=== PATIENT | female | born 1995 | race Hispanic/Latino ===

== ENCOUNTER 2017-07-08 10:04 | Emergency (ER) | payer SELFPAY ==
[2017-07-08 10:43] LABS: #Basophils 0.1 thou/uL (0.0-0.2); #Eosinphils 0.1 thou/uL (0.0-0.7); #Lymphocytes 1.6 thou/uL (1.20-3.40); #Monocytes 0.5 thou/uL (0.11-0.59); #Neutrophils 2.8 thou/uL (1.40-6.50); %Basophils 1.3 % (0.0-1.0); %Eosinophils 2.5 % (0.0-10.0); %Lymphocytes 32.3 % (28.0-48.0); %Monocytes 8.9 % (0.0-4.0); %Neutrophils 55.1 % (31.0-61.0); Hemoglobin 15.7 g/dL (12.0-16.0); Mean Corpuscular HGB CONC 34.2 g/dL (32.0-36.0); Mean Corpuscular Hemoglobin 32.1 pg (25.0-35.0); Platelet Count 299 thou/uL (130-400); RBC Distribution Width 11.8 % (11.5-14.5)
[2017-07-08 11:07] LABS: ALT (SGPT) 20 U/L (8-55); AST (SGOT) 16 U/L (5-34); Albumin 4.1 g/dL (3.5-5.0); Alkaline Phosphatase 88 U/L (40-150); Anion Gap 9 mmol/L (10-20); BUN (Urea Nitrogen) 9 mg/dL (7.0-18.7); Bilirubin, Total 0.7 mg/dL (0.2-1.2); Calc. Creatinine Clearance 0 mL/min (70-130); Calcium 9.1 mg/dL (7.8-10.44); Carbon Dioxide 26 mmol/L (22-29); Chloride 107 mmol/L (98-107); Estimated GFR-MDRD Greater than 90; Globulin 3.5 g/dL (2.4-3.5); Glucose 88 mg/dL (70-105); Protein, Total 7.6 g/dL (6.0-8.3); Sodium 138 mmol/L (136-145)
[2017-07-08 11:23] LABS: Bilirubin Negative (Negative); Blood, Urine Negative (Negative); Glucose, Urine (Dipstick) Negative (Negative); Leukocyte Moderate (Negative); Nitrite Negative (Negative); Protein, Urine (Dipstick) Negative (Neg-Trace); Urobilinogen 0.2 mg/dL (0.2-1.0)
[2017-07-08 11:26] LABS: Clarity CLEAR (Clear)
[2017-07-08 11:28] LABS: Pregnancy Test - Urine (BHCG) Negative (Negative); Pregu Control Background? CLEAR/WHITE (CLR/WHITE); Pregu Control Bar Appear? YES (CONTROL BAR)
[2017-07-08 11:31] LABS: Bacteria/HPF 1+ HPF (None Seen); Hyaline Casts/LPF NONE SEEN LPF (0-3 Hyaline); RBC/HPF None Seen HPF (0-3); Squamous Epithelial 0-3 HPF (0-3)
[2017-07-08] MEDS ORDERED: Metoclopramide HCl 10 MG/2 ML VIAL ONE (11:34)
[2017-07-08 12:38] LABS: Acetaminophen Less than 6.0 mcg/mL (10.0-30.0); Alcohol Less than 10 mg/dL (Less than 10); Salicylate Less than 8.0 mg/dL (15.0-30.0)
[2017-07-08 12:42] LABS: Amphetamine Not Detected (NotDetected); Barbiturates Screen Not Detected (NotDetected); Benzodiazepine Screen Not Detected (NotDetected); Cocaine Metabolite Screen Not Detected (NotDetected); Medtox Reader # READER 1; Methadone Not Detected (NotDetected); Methamphetamine Not Detected (NotDetected); Opiate Screen Not Detected (NotDetected); Oxycodone Screen Not Detected (NotDetected); Phencyclidine (PCP) Not Detected (NotDetected); THC/Cannabinoid Screen Not Detected (NotDetected); Tricyclic Screen Not Detected (NotDetected)
[2017-07-08 12:43] LABS: Medtox Control Line Valid? VALID (VALID)
[2017-07-08] MEDS ORDERED: ISOVUE-370 76%-LOCM 1 ML ONE (13:04)
--- NOTE | 2017-07-08 13:57 | CT ---
CT OF THE BRAIN WITHOUT CONTRAST: COMPARISON: None. HISTORY: Right-sided facial numbness that began days ago with intermittent headaches. TECHNIQUE: Multiple contiguous axial images were obtained in a CT of the brain without contrast. FINDINGS: The brain is normal in morphology and attenuation without focal lesions or confluent areas of infarct ion. There is no evidence of hydrocephalus, intracranial hemorrhage, or extraaxial fluid collection. The calvarium and overlying soft tissues are unremarkable. The visualized paranasal sinuses and mast oid air cells are well aerated. IMPRESSION: No evidence of acute intracranial abnormality. POS: [facility]
[2017-07-08] MEDS ORDERED: Lidocaine 1% PF 5 ML VIAL ONE (14:14)
[2017-07-08] MEDS ORDERED: Lidocaine 1% (PF) 30 ML VIAL ONE (14:15)
[2017-07-08] MEDS ORDERED: Lorazepam 2 MG/ML VIAL ONE (14:16)
[2017-07-08] MEDS ORDERED: Ondansetron HCl/PF 4 MG/2 ML Vial ONE (14:16)
--- NOTE | 2017-07-08 17:00 | CT ---
CT ARTERIOGRAM CHEST WITH IV CONTRAST AND 3D MIP IMAGING: History: Chest pain. Syncope. FINDINGS: There is good contrast opacification of the pulmonary arteries and thoracic aorta with normal branchi ng of the great vessels from the aortic arch. Minimal atelectasis is present at the lung bases. No pl eural fluid or mediastinal adenopathy. IMPRESSION: 1. No evidence of pulmonary embolus. POS: [facility]
--- NOTE | 2017-07-28 18:19 | EKG ---
Test Reason : Blood Pressure : / mmHG Vent. Rate : 068 BPM Atrial Rate : 068 BPM P-R Int : 128 ms QRS Dur : 076 ms QT Int : 392 ms P-R-T Axes : 049 075 049 degrees QTc Int : 416 ms Sinus rhythm with Premature supraventricular complexes Otherwise normal ECG Confirmed by NATTY GUTIERREZ ([id number]), editorial director LUCIO RENTERIA ([id number] on 07/28/2017 6:18:38 PM Referred By: Confirmed By:NATTY GUTIERREZ
== END 2017-07-08 17:26 | disposition home or self-care (01) ==
LOC: EEVIPCON 10:04 → ERS 10:04
DX: R51 Headache (principal); R55 Syncope and collapse
CPT/HCPCS: 36415; 62270; 70450; 71275; 80053; 80306; 80307; 81003; 81015; 81025; 85025; 85379; 93005; 96361; 96374; 96375; 96376; J2001; J2060; J2270; J2405; J2765

== ENCOUNTER 2018-02-20 21:57 | Emergency (ER) | payer SELFPAY ==
[2018-02-20 22:32] LABS: #Eosinphils 0.2 thou/uL (0.0-0.7); #Monocytes 0.6 thou/uL (0.11-0.59); #Neutrophils 3.2 thou/uL (1.40-6.50); %Basophils 0.4 % (0.0-1.0); %Eosinophils 2.5 % (0.0-10.0); %Lymphocytes 49.2 % (21.0-51.0); %Monocytes 7.9 % (0.0-10.0); %Neutrophils 39.9 % (42.0-75.0); Hemoglobin 15.8 g/dL (12.0-16.0); Mean Corpuscular HGB CONC 34.7 g/dL (32.0-36.0); Mean Corpuscular Hemoglobin 32.3 pg (27.0-31.0); Mean Corpuscular Volume 93.2 fL (78.0-98.0); Mean Platelet Volume 5.9 fL (7.4-10.4); Platelet Count 353 thou/uL (130-400); RBC Distribution Width 11.1 % (11.5-14.5); Red Blood Cell (RBC) Count 4.91 mill/uL (4.20-5.40); White Blood Cell (WBC) Count 8.1 thou/uL (4.8-10.8)
[2018-02-20 22:40] LABS: BHCG - Serum Negative (NEGATIVE); Pregs Control Background? CLEAR/WHITE (CLR/WHITE); Pregs Control Bar Appear? YES (CONTROL BAR)
[2018-02-20 22:45] LABS: Anion Gap 16 mmol/L (10-20); BUN (Urea Nitrogen) 8 mg/dL (7.0-18.7); Calc. Creatinine Clearance 0 mL/min (70-130); Calcium 9.6 mg/dL (7.8-10.44); Carbon Dioxide 20 mmol/L (22-29); Chloride 107 mmol/L (98-107); Estimated GFR-MDRD Greater than 90; Glucose 87 mg/dL (70-105); Sodium 139 mmol/L (136-145)
== END 2018-02-20 23:18 | disposition home or self-care (01) ==
LOC: ERS 21:57
DX: N94.6 Dysmenorrhea, unspecified (principal)
CPT/HCPCS: 36415; 80048; 84703; 85025; 99284

== ENCOUNTER 2018-03-07 09:27 | Emergency (ER) | payer OTHER, SELFPAY ==
[2018-03-07] MEDS ORDERED: Cyclobenzaprine 10 MG TAB ONE (10:25)
[2018-03-07 10:52] LABS: Pregnancy Test - Urine (BHCG) Negative (Negative); Pregu Control Background? CLEAR/WHITE (CLR/WHITE); Pregu Control Bar Appear? YES (CONTROL BAR); Specific Gravity 1.009 (1.002-1.036)
[2018-03-07] MEDS ORDERED: Ketorolac Tromethamine 60 MG/2 ML VIAL ONE (11:10)
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
== END 2018-03-07 12:37 | disposition home or self-care (01) ==
LOC: ERS 09:27
DX: S40.012A Contusion of left shoulder, initial encounter (principal); S00.83XA Contusion of other part of head, initial encounter; V43.52XA Car driver injured in collision with other type car in traffic accident, initial encounter
CPT/HCPCS: 81025; J1885

== ENCOUNTER 2018-03-26 21:58 | Emergency (ER) | payer SELFPAY ==
[2018-03-26 23:11] LABS: #Basophils 0.1 thou/uL (0.0-0.2); #Eosinphils 0.1 thou/uL (0.0-0.7); #Lymphocytes 2.5 thou/uL (1.20-3.40); #Monocytes 0.4 thou/uL (0.11-0.59); #Neutrophils 3.7 thou/uL (1.40-6.50); %Basophils 1.3 % (0.0-1.0); %Eosinophils 2.1 % (0.0-10.0); %Lymphocytes 36.2 % (21.0-51.0); %Monocytes 6.3 % (0.0-10.0); %Neutrophils 54.1 % (42.0-75.0); Hemoglobin 14.8 g/dL (12.0-16.0); Mean Corpuscular HGB CONC 34.1 g/dL (32.0-36.0); Mean Corpuscular Hemoglobin 32.2 pg (27.0-31.0); Mean Corpuscular Volume 94.4 fL (78.0-98.0); Mean Platelet Volume 5.9 fL (7.4-10.4); Platelet Count 313 thou/uL (130-400); RBC Distribution Width 11.2 % (11.5-14.5); Red Blood Cell (RBC) Count 4.59 mill/uL (4.20-5.40); White Blood Cell (WBC) Count 6.8 thou/uL (4.8-10.8)
[2018-03-26 23:44] LABS: Bilirubin Negative (Negative); Blood, Urine Negative (Negative); Clarity CLOUDY (Clear); Glucose, Urine (Dipstick) Negative (Negative); Leukocyte Large (Negative); Nitrite Negative (Negative); Protein, Urine (Dipstick) Negative (Neg-Trace); Specific Gravity, Urine 1.026 (1.002-1.036); pH, Urine 6.5 (5.0-9.0)
[2018-03-26 23:47] LABS: Bacteria/HPF 1+ HPF (None Seen)
[2018-03-26 23:50] LABS: Hyaline Casts/LPF 0-3 HYALINE CAST LPF (0-3 Hyaline)
[2018-03-27] MEDS ORDERED: Fosfomycin 3 GM/Packet PO SCH (00:30)
--- NOTE | 2018-03-27 07:48 | ULT ---
OBSTETRICAL ULTRASOUND: INDICATION: History of with vaginal spotting. FINDINGS: The uterus measures 9.1 x 5.2 x 5.4 cm. There is a single intrauterine gestation with yolk sac ident ified. No pole is noted. No hemorrhage is noted. The mean sac diameter is 0.75 cm with an es timated gestational age of 5 weeks and 4 days. Estimated due date is 11/22/2018. This corresponds to the estimated gestational age by LMP. The right ovary measures 3.4 x 2.2 x 1.8 cm. The left ovary measures 3.8 x 2.4 x 2.8 cm. There is a 1.2 cm mildly complex cyst involving the left ovary likely related to a corpus luteal cyst. No free fluid is demonstrated. IMPRESSION: 1. Early intrauterine gestation. No pole identified. Mean sac diameter with estimated gestat ional age as above. 2. Left ovarian corpus luteal cyst. POS: [facility]
== END 2018-03-27 01:05 | disposition home or self-care (01) ==
LOC: ERS 21:58
DX: O20.9 Hemorrhage in early pregnancy, unspecified (principal); O23.41 Unspecified infection of urinary tract in pregnancy, first trimester; Z3A.01 Less than 8 weeks gestation of pregnancy
CPT/HCPCS: 36415; 76856; 81003; 81015; 84702; 85025; 87086; 87480; 87510; 87660

== ENCOUNTER 2018-06-27 01:49 | Day surgery (SDC) | payer OTHER ==
[2018-06-27 02:19] VITALS: BP 100/55; TEMP 99.1; BMI 28.1
[2018-06-27] MEDS ORDERED: Morphine 4 MG/ML VIAL SLOW IVP PRN (02:38)
[2018-06-27] MEDS ORDERED: Lactated Ringer's 1,000 ML IV SCH ×2 (02:45)
[2018-06-27] MEDS ORDERED: Morphine 4 MG/ML VIAL SLOW IVP SCH (02:45)
[2018-06-27] MEDS ORDERED: Ondansetron PF 4 MG/2 ML Vial IVP SCH ×2 (02:45→08:30)
[2018-06-27] MEDS: Morphine 4 MG/ML VIAL SLOW IVP SCH ×2 (02:51→03:36)
[2018-06-27 02:57] LABS: #Eosinphils 0.2 thou/uL (0.0-0.7); #Lymphocytes 2.3 thou/uL (1.20-3.40); #Monocytes 0.6 thou/uL (0.11-0.59); #Neutrophils 4.6 thou/uL (1.40-6.50); %Basophils 0.3 % (0.0-1.0); %Eosinophils 2.2 % (0.0-10.0); %Lymphocytes 30.1 % (21.0-51.0); %Monocytes 7.1 % (0.0-10.0); %Neutrophils 60.3 % (42.0-75.0); Hemoglobin 13.1 g/dL (12.0-16.0); Mean Corpuscular Hemoglobin 32.7 pg (27.0-31.0); Mean Corpuscular Volume 93.4 fL (78.0-98.0); Mean Platelet Volume 6.4 fL (7.4-10.4); Platelet Count 237 thou/uL (130-400); RBC Distribution Width 11.7 % (11.5-14.5); Red Blood Cell (RBC) Count 4.01 mill/uL (4.20-5.40); White Blood Cell (WBC) Count 7.7 thou/uL (4.8-10.8)
--- NOTE | 2018-06-27 03:17 | PRG ---
DATE OF SERVICE: 06/27/2018 OB ER ENCOUNTER PRIMARY OB: Dr. Renzo Aleman. CHIEF COMPLAINT: Right flank pain. HISTORY OF PRESENT ILLNESS: The patient is a 22-year-old, G2, P1 female with an intrauterine at 19 weeks with a 3-month history of intermittent right-sided pain that has become more constant and severe in the last 24 hours. The patient reports that she has a history of kidney stones with the previous . She reports that she is not aware that there has been any workup for kidney stones with this . The patient denies any fever, headache, chest pain, or shortness of breath. She does report nausea and vomiting today. She denies diarrhea or constipation. She denies any new rash. She denies hip problems, knee problems, or muscle weakness. She denies vaginal bleeding, leakage of fluid, or contraction pain. She denies urgency or burning when she pees. PAST MEDICAL HISTORY: Negative. PAST SURGICAL HISTORY: Negative. ALLERGIES: CODEINE, SHE REPORTS SHE GETS A RASH. MEDICATIONS: vitamins. SOCIAL HISTORY: Denies drug, alcohol, or tobacco use. OB LABORATORY DATA: Unavailable at the time of dictation. REVIEW OF SYSTEMS: Per HPI. PHYSICAL EXAMINATION: VITAL SIGNS: Blood pressure is 100/55, heart rate of 68, and temperature 99.1. GENERAL: The patient appears to be in quite a bit of distress. When I arrived in the room, the patient had herself completely covered with her blankets and writhing in bed, difficult getting comfortable. She is alert, oriented, cooperative, and pleasant to interact with. HEAD: Normocephalic and atraumatic. LUNGS: Clear to auscultation bilaterally. HEART: Regular rate and rhythm. ABDOMEN: Soft and gravid. She has right-sided CVA tenderness, mild and some right-sided abdominal pains. EXTREMITIES: Nontender, nonedematous. heart tones are Doppler'd in the 140s. LABORATORY DATA: CBC and CMP have been ordered and ultrasound of her right kidney and ureter have been ordered. Urinalysis has been ordered. ASSESSMENT AND PLAN: The patient is a 22-year-old female with right-sided flank pain. The patient's symptoms are classic for a kidney stone. The patient has a history of kidney stones with a prior . Fetus is reassuring with Doppler heart tones. We will be awaiting her lab work and ultrasound. In the meantime , the patient been given IV and will be aggressively hydrated. Also, Zofran and morphine for nausea and pain control has been ordered. Goals at this time is to get her comfortable. Once labs and ultrasound are available, we will review the results and make further management decisions. Addendum: labs reviewed and significant for normal cmp, cbc, and ua neg for blood, nitrites, bacteria Pain has required multiple doses of IV morphine 4mg. Pt given hydrocodone 5mg tab po x1 and is now sleeping. Awaiting u/s results. Pt has been placed in observation for pain control and pending u/s results. Dr. Goldstein will be assuming care. Job ID: [id number] [facility]
[2018-06-27 03:41] LABS: Bilirubin Negative (Negative); Blood, Urine Negative (Negative); Clarity CLEAR (Clear); Glucose, Urine (Dipstick) Negative (Negative); Leukocyte Trace (Negative); Nitrite Negative (Negative); Protein, Urine (Dipstick) Negative (Neg-Trace); Specific Gravity, Urine 1.006 (1.002-1.036)
[2018-06-27 03:43] LABS: Bacteria/HPF None Seen HPF (None Seen); Hyaline Casts/LPF 0-3 HYALINE CAST LPF (0-3 Hyaline); Pathc Cast-AUWi Flag 0.14 (0-2.49); RBC/HPF 0-3 HPF (0-3); Squamous Epithelial 0-3 HPF (0-3)
[2018-06-27 03:49] LABS: ALT (SGPT) 7 U/L (8-55); AST (SGOT) 10 U/L (5-34); Albumin 3.4 g/dL (3.5-5.0); Alkaline Phosphatase 56 U/L (40-150); Anion Gap 11 mmol/L (10-20); BUN (Urea Nitrogen) 4 mg/dL (7.0-18.7); Bilirubin, Total 0.3 mg/dL (0.2-1.2); Calc. Creatinine Clearance 179 mL/min (70-130); Calcium 9.1 mg/dL (7.8-10.44); Carbon Dioxide 25 mmol/L (22-29); Chloride 107 mmol/L (98-107); Estimated GFR-MDRD Greater than 90; Globulin 2.9 g/dL (2.4-3.5); Glucose 81 mg/dL (70-105); Potassium 3.6 mmol/L (3.5-5.1); Protein, Total 6.3 g/dL (6.0-8.3); Sodium 139 mmol/L (136-145)
[2018-06-27] MEDS ORDERED: HYDROcodone/Acetaminophen 5/325 mg Tablet PO PRN (06:02)
--- NOTE | 2018-06-27 07:35 | ULT ---
BILATERAL RENAL ULTRASOUND: Date: 06/27/18 INDICATION: Left-sided flank pain with history of renal stones in 20 week . COMPARISON: Prior CT of the abdomen and pelvis dated 01/26/13, as well as a renal ultrasound dated 03/16/15. FINDINGS: The right kidney measures 11.2 x 4.8 4.6 cm. There is moderate right-sided hydronephrosis. No visuali zed ureteral jet is evident. The left kidney measures 11.0 x 3.8 x 4.4 cm. No focal renal lesion or hydronephrosis evident. There is an extrarenal pelvis involving the left kidney. The left ureteral jet is not demonstrated at the b ladder. The bladder is partially decompressed, measuring 39 mL. There is partial visualization of an intraute rine gestation within the lower pelvis. IMPRESSION: 1. Moderate right hydronephrosis, some of which may be physiologic related to the patient's pregnanc y. Continued sonographic follow-up is recommended. 2. Extrarenal pelvis of the left kidney. No amandeep left-sided hydronephrosis is demonstrated. 3. Partially decompressed bladder. POS: [facility]
--- NOTE | 2018-06-27 08:10 | PDOC.EVN ---
Event Note - Event Note Event Note: Automatic Pilot Mechanic note: reviewed case with Dr Bermeo. 19 week sono...OBS for possible renal colic. WBC wnl; UA negative; sono with expected right ydro but no overt stone...limited bladder scan, no jets. Afebrile. She is in observation in triage. Took hydrocoden here Patient of Dr Aleman
[2018-06-27] MEDS ORDERED: Ondansetron PF 4 MG/2 ML Vial ONE (08:24)
--- NOTE | 2018-06-27 08:26 | PDOC.EVN ---
Event Note - Event Note Event Note: I have seen and examined the patient. CX is closed, thick, high. Tylenol states gives her an "allergy". Motrin is ok at low doses up to 30 weeks. OK for DC home with follow up Dr Aleman. FHTs checked at bedside with me...130s
== END 2018-06-27 08:53 | disposition home health service (06) ==
LOC: L&D/OP 01:49
PROVIDERS: ATTEND Family Medicine
DX: O99.89 Other specified diseases and conditions complicating pregnancy, childbirth and the puerperium (principal); N13.30 Unspecified hydronephrosis; Z3A.19 19 weeks gestation of pregnancy; Z87.442 Personal history of urinary calculi; Z79.899 Other long term (current) drug therapy; Z88.5 Allergy status to narcotic agent
CPT/HCPCS: 36415; 76770; 80053; 81001; 85025; 96360; 96361; 96375; 99283; J2270; J2405

== ENCOUNTER 2018-07-04 08:29 | Outpatient (CLI) | payer OTHER ==
--- NOTE | 2018-07-04 11:16 | ULT ---
OB ULTRASOUND: HISTORY: Size and dates. FINDINGS: A single live intrauterine gestation is seen with measurements corresponding to an estimated gestatio nal age of 20 weeks 2 days and ADITYA at 11/19/2018. The estimated weight measures 329 gm or 12 oun marky. biometry: BPD 4.76 cm, 20 weeks 3 days HC 17.88 cm, 20 weeks 3 days AC 14.45 cm, 19 weeks 6 days FL 3.29 cm, 20 weeks 2 days heart rate measures 132 b.p.m. Placenta is posteriorly located without evidence of placenta pr evia. YOLI measures 10.6 cm. The 3-vessel cord is visualized only at the cord insertion. kidneys, bladder, stomach, 4 chamb er heart, lateral ventricles, cerebellum, spine, lips/nose, upper and lower extremities were visualiz ed. No definite anomalies are seen. IMPRESSION: Single live intrauterine of 20 weeks 2 days estimated gestational age and estimated date of delivery at 11/19/2018. POS: [facility]
== END 2018-07-04 08:30 | disposition home or self-care (01) ==
LOC: BICULT 08:29
PROVIDERS: ATTEND Family Medicine
DX: Z34.82 Encounter for supervision of other normal pregnancy, second trimester (principal); Z3A.20 20 weeks gestation of pregnancy
CPT/HCPCS: 76805

== ENCOUNTER 2018-08-25 13:52 | Day surgery (SDC) | payer OTHER ==
--- NOTE | 2018-08-25 14:19 | PDOC.LDHP ---
Labor and Delivery H&P Chief complaint: other (n/v/d) HPI: 22 yo @ 27.5wks with EDC 11/19/18 presents with n/v/d that started last night. She endorses vomiting 5 times and had one episode of diarrhea (watery, nonbloody). She denies fever, sick contacts, cough, congestion. She does endorse having chills, and a headache that is dull and encompasses her entire head. She endorses some decreased po intake as well. Endorses intermittant contractions, denies VB, LOF, discharge, dysuria. Due date: 11/19/18 Dating criteria: last menstrual period Grav: 2 Para: 1 Current complications: none Abnormal US findings: No Past Medical History: none Current medications: none Previous surgical history: other Allergies/Adverse Reactions: Allergies Allergy/AdvReac Type Severity Reaction Status Date / Time codeine phosphate Allergy Mild Rash Verified 08/25/18 14:26 [From Tylenol-Codeine #3] acetaminophen [From Tylenol] Allergy Verified 08/25/18 15:08 Social history: none - Physical Exam Vital signs reviewed and normal: yes General: NAD Heart: RRR Lungs: CTAB Abdomen: other (diffusely tender to palpation; no CVA tenderness) Extremeties: no edema FHT: category 1 - Assessment 22 yo @ 27.5wks presents with n/v/d likely d/t viral gastroenteritis. - Plan -: #Suspected Viral Gastroenteritis-we will observe the pt in ob triage for 2-4 hours, provide 1L bolus of D5 followed by 1L of LR, reglan, benadryl, and zofran for her headache and nausea. Pt is afebrile, but tachycardic, likely 2/2 dehydration from the gastroenteritis. If VSS and pt tolerates po challenge, okay to discharge in 2-4 hours.
[2018-08-25 14:26] VITALS: BP 103/61; TEMP 99.7; BMI 29.1
[2018-08-25] MEDS ORDERED: Dextrose 5%-Lactated Ringers 1,000 ML IV SCH (14:30)
[2018-08-25] MEDS ORDERED: Ondansetron PF 4 MG/2 ML Vial IVP SCH (14:45)
[2018-08-25] MEDS ORDERED: Ondansetron ORAL SOLN. 4 MG/5 ML UDCUP PO PRN (14:45)
[2018-08-25] MEDS: Acetaminophen 500 MG TAB PO SCH ×2 (15:02→15:42)
[2018-08-25] MEDS ORDERED: diphenhydrAMINE 50 MG/ML VIAL ONE (15:10)
[2018-08-25] MEDS ORDERED: diphenhydrAMINE 50 MG/ML VIAL IVP SCH ×2 (15:15)
[2018-08-25] MEDS ORDERED: Metoclopramide HCl 10 MG/2 ML VIAL IVP SCH ×2 (15:15→16:45)
[2018-08-25] MEDS ORDERED: Lactated Ringer's 1,000 ML IV SCH (15:15)
[2018-08-25] MEDS: Metoclopramide HCl 10 MG/2 ML VIAL IVP SCH ×2 (15:59→16:55)
--- NOTE | 2018-08-25 18:00 | PDOC.EVN ---
Event Note - Event Note Event Note: Pt's nausea has resolved as well as her headache. She feels better and would like to go home. We will proceed with discharge.
[2018-08-26] MEDS ORDERED: Prenatal Vitamin 1 TAB PO SCH (09:00)
== END 2018-08-25 18:20 | disposition home or self-care (01) ==
LOC: L&D/OP 13:52
PROVIDERS: ATTEND Family Medicine
DX: O21.2 Late vomiting of pregnancy (principal); Z3A.27 27 weeks gestation of pregnancy; Z88.5 Allergy status to narcotic agent
CPT/HCPCS: 96360; 96361; 96375; 99282; J1200; J2405; J2765

== ENCOUNTER 2018-10-31 13:04 | Day surgery (SDC) | payer OTHER ==
--- NOTE | 2018-11-01 01:54 | SS ---
DATE OF ADMISSION: 10/31/2018 DATE OF DISCHARGE: 10/31/2018 REGULAR PHYSICIAN: Renzo Aleman MD. EVALUATING PHYSICIAN: Kei Coley MD CHIEF COMPLAINT: Back pain and vaginal pressure. HISTORY OF PRESENT ILLNESS: Ms. Laci Scott is a 22-year-old G5, P1, AB3 with an estimated date of confinement of 11/16/2018, who presents complaining of a 12-hour history of back pain and vaginal pressure. She states that she is rupert occasionally. She denies ruptured membranes or vaginal bleeding. Her care has been with Dr. Aleman without complications. PAST OBSTETRICAL HISTORY: One vaginal delivery at 36 weeks. She has also had three miscarriages. PAST MEDICAL HISTORY: None. PAST SURGICAL HISTORY: None. CURRENT MEDICATIONS: vitamins. ALLERGIES: TYLENOL NO.3 WHICH GIVES HER A RASH. SOCIAL HISTORY: Denies tobacco or alcohol use. FAMILY HISTORY: Unremarkable. REVIEW OF SYSTEMS: She denies nausea, vomiting, fever, chills, ruptured membranes, or vaginal bleeding. PHYSICAL EXAMINATION: VITAL SIGNS: In triage, her vital signs are stable and she is afebrile. GENERAL: She is pleasant and in no acute distress. ABDOMEN: Soft, nontender, and gravid. PELVIC: Exam by Labor nurse, her cervix is 2 cm dilated, thick and very posterior with the vertex presenting. heart rate tracing is stable with good [id number] variability and spontaneous accelerations. No regular uterine contractions are seen. ASSESSMENT: 1. 38-week intrauterine . 2. No evidence of active labor at this time. PLAN: The patient will be dismissed to home. Labor precautions were reviewed with her in detail. Dr. Aleman has been made aware. Job ID: [id number]
== END 2018-10-31 14:20 | disposition home or self-care (01) ==
LOC: L&D/OP 13:04
PROVIDERS: ATTEND Family Medicine
DX: O99.89 Other specified diseases and conditions complicating pregnancy, childbirth and the puerperium (principal); M54.9 Dorsalgia, unspecified; Z87.59 Personal history of other complications of pregnancy, childbirth and the puerperium; Z3A.38 38 weeks gestation of pregnancy; Z88.5 Allergy status to narcotic agent; Z88.6 Allergy status to analgesic agent
CPT/HCPCS: 99282

== ENCOUNTER 2018-11-05 16:19 | Inpatient (IN) | payer OTHER ==
[2018-11-05 16:59] VITALS: BMI 31.6
[2018-11-05] MEDS ORDERED: Lactated Ringer's 1,000 ML IV SCH ×3 (18:15→23:15)
[2018-11-05] MEDS ORDERED: Ondansetron PF 4 MG/2 ML Vial IVP SCH (18:15)
[2018-11-05] MEDS ORDERED: Methylergonovine 0.2 MG/ML VIAL IM PRN (19:12)
[2018-11-05] MEDS ORDERED: Diphenoxylate HCl/Atropine Tablet PO PRN (19:12)
[2018-11-05] MEDS ORDERED: NS / Oxytocin 40 units/1000ml 1,000 ML IV PRN (19:12)
[2018-11-05] MEDS ORDERED: Carboprost 250 MCG/ML AMP IM PRN (19:12)
[2018-11-05] MEDS ORDERED: Misoprostol 200 MCG TAB PR PRN (19:12)
[2018-11-05] MEDS ORDERED: Ondansetron PF 4 MG/2 ML Vial IVP PRN ×2 (19:12→20:30)
[2018-11-05] MEDS ORDERED: Ibuprofen 800 MG TAB PO PRN (19:12)
[2018-11-05] MEDS ORDERED: Lidocaine 1% (PF) 30 ML VIAL SC PRN (19:12)
[2018-11-05] MEDS ORDERED: Promethazine HCl 25 MG/ML VIAL IM PRN ×2 (19:12→20:30)
[2018-11-05] MEDS ORDERED: NS w/ Oxytocin 10 units 500 ML IV SCH ×2 (19:15)
[2018-11-05 19:36] LABS: Hemoglobin 12.2 g/dL (12.0-16.0); Mean Corpuscular HGB CONC 33.7 g/dL (32.0-36.0); Mean Corpuscular Hemoglobin 28.5 pg (27.0-31.0); Mean Corpuscular Volume 84.8 fL (78.0-98.0); Mean Platelet Volume 6.8 fL (7.4-10.4); Platelet Count 195 thou/uL (130-400); Red Blood Cell (RBC) Count 4.27 mill/uL (4.20-5.40); White Blood Cell (WBC) Count 7.6 thou/uL (4.8-10.8)
[2018-11-05] MEDS ORDERED: Lidocaine 2% MPF 10 ML AMP (For Epidural Use) ONE (19:38)
[2018-11-05] MEDS ORDERED: Fentanyl 4 mcg/Bup 0.1% Cadd 100 ML ONE (19:43)
[2018-11-05 20:23] LABS: Syphilis Antibody Nonreactive (Nonreactive); Syphilis Antibody Index 0.04 S/CO (<1.00 Non-Reactive)
[2018-11-05 20:24] LABS: HBSAg Index 0.34 S/CO (0-0.99); Hep B Surf Ag Non-Reactive S/CO (NonReactive)
[2018-11-05] MEDS ORDERED: Communication Order-Pharmacy FS SCH (20:30)
[2018-11-05] MEDS ORDERED: Lactated Ringer's 500 ML IV PRN (20:30)
[2018-11-05] MEDS ORDERED: diphenhydrAMINE 50 MG/ML VIAL IVP PRN (20:30)
[2018-11-05] MEDS ORDERED: Fentanyl 4 mcg/Bupivacaine 0.1% Cassette 100 ML EPIDURAL SCH (20:30)
[2018-11-05] MEDS ORDERED: Naloxone HCl 0.4 mg/ml Vial IVP PRN ×2 (20:30)
[2018-11-05] MEDS ORDERED: ePHEDrine/0.9% NaCl/PF SYRINGE 50 mg/10 ml SLOW IVP PRN (20:30)
[2018-11-06] MEDS ORDERED: Ondansetron PF 4 MG/2 ML Vial IVP PRN (03:48)
[2018-11-06] MEDS ORDERED: Lanolin Ointment 7 GM TUBE TOP PRN (03:48)
[2018-11-06] MEDS ORDERED: diphenhydrAMINE 25 MG CAP PO PRN (03:48)
[2018-11-06] MEDS ORDERED: Benzocaine-Menthol 82.5 ML CAN TOP PRN (03:48)
[2018-11-06] MEDS ORDERED: Milk Of Magnesia 30 ML UDCUP PO PRN (03:48)
[2018-11-06] MEDS ORDERED: Bisacodyl 10 MG SUPP PR PRN (03:48)
[2018-11-06] MEDS ORDERED: Promethazine HCl 25 MG/ML VIAL IM PRN (03:48)
[2018-11-06] MEDS ORDERED: NS / Oxytocin 40 units/1000ml 1,000 ML IV SCH (03:48)
[2018-11-06] MEDS ORDERED: traMADol HCl 50 MG TAB PO PRN (03:48)
[2018-11-06] MEDS: Ibuprofen 800 MG TAB PO SCH ×2 (05:30→13:22)
[2018-11-06] MEDS: Ferrous Sulfate 325 MG TAB PO SCH ×2 (08:27→16:38)
[2018-11-06] MEDS: Docusate Calcium (SURFAK) 240 MG CAP PO SCH (09:11)
[2018-11-06] MEDS: Prenatal Vitamin 1 TAB PO SCH (09:11)
[2018-11-06 20:14] VITALS: TEMP 98
[2018-11-07] MEDS ORDERED: Ibuprofen 800 MG TAB ONE (06:11)
[2018-11-07 08:46] VITALS: BP 89/50
[2018-11-07] MEDS: Ferrous Sulfate 325 MG TAB PO SCH (09:36)
[2018-11-07] MEDS: Docusate Calcium (SURFAK) 240 MG CAP PO SCH (10:06)
[2018-11-07] MEDS: Prenatal Vitamin 1 TAB PO SCH (10:06)
== END 2018-11-07 11:50 | disposition home or self-care (01) | DRG 807 ==
LOC: L&D/OP 16:19 → L&D 19:54 → 3SW 11-06 04:04
PROVIDERS: ADMIT Family Medicine; ATTEND Family Medicine
PROC: 10E0XZZ Delivery of Products of Conception, External Approach (ICD-10-PCS; principal; 2018-11-06)
PROC: 0KQM0ZZ Repair Perineum Muscle, Open Approach (ICD-10-PCS; 2018-11-06)
DX: O70.1 Second degree perineal laceration during delivery (principal); Z37.0 Single live birth; O71.82 Other specified trauma to perineum and vulva; Z3A.38 38 weeks gestation of pregnancy
CPT/HCPCS: 36415; 51702; 85027; 86780; 86850; 86900; 86901; 87340; 99285; J2001; J2405; J2590

== ENCOUNTER 2024-03-28 08:17 | Emergency (ER) | payer SELFPAY, OTHER ==
[2024-03-28] MEDS ORDERED: fentaNYL 50 mcg/mL 1 mL Vial ONE (09:05)
[2024-03-28] MEDS ORDERED: Boostrix 0.5 ML (Tdap) VIAL (>/=7 yrs of age) ONE (09:05)
== END 2024-03-28 10:05 | disposition home or self-care (01) ==
LOC: ERS 08:17
DX: S06.0X0A Concussion without loss of consciousness, initial encounter (principal); S80.811A Abrasion, right lower leg, initial encounter; S80.812A Abrasion, left lower leg, initial encounter; S80.212A Abrasion, left knee, initial encounter; S80.211A Abrasion, right knee, initial encounter; V48.0XXA Car driver injured in noncollision transport accident in nontraffic accident, initial encounter; Y93.89 Activity, other specified; Z23 Encounter for immunization
CPT/HCPCS: 70450; 72125; 90471; 90715; 96374; J3010

== ENCOUNTER 2025-04-23 11:28 | Emergency (ER) | payer SELFPAY ==
[2025-04-23] MEDS ORDERED: Dexamethasone 10 MG/ML VIAL ONE (13:04)
[2025-04-23 14:13] LABS: MONO NEGATIVE CONTROL ZONE White (Negative) (White); MONO POSITIVE CONTROL Pink Line (Positive) (PINK/RED); Mononucleosis NEGATIVE (NEGATIVE)
== END 2025-04-23 14:30 | disposition home or self-care (01) ==
LOC: ERS 11:28
DX: J02.9 Acute pharyngitis, unspecified (principal)
CPT/HCPCS: 86308; 87081; 87430; 96372; 99283; J1100